=== PATIENT | female | born 1960 | race African-American/Black ===

== ENCOUNTER 2019-01-30 13:50 | Observation (INO) ==
[2019-01-30] MEDS ORDERED: ASPIRIN PO ONE (13:58)
[2019-01-30 14:13] LABS: BASO# 0.01 X1000 (0.0-0.2); BASO% 0.2 % (0.0-0.8); HEMATOCRIT 42.4 % (37.0-47.0); HEMOGLOBIN 14.1 g/dL (12.0-16.0); LYMPH# 1.33 X1000 (1.2-3.4); LYMPH% 22.4 % (20.5-51.1); MCH 28.1 PG (27-31); MCHC 33.3 g/dL (33-37); MCV 84.5 FL (81-99); MONO# 0.49 X1000 (0.11-0.59); MONO% 8.2 % (1.7-9.3); MPV 10.9 FL (7.4-10.4); NEUT# 4.12 X1000 (1.4-6.5); NEUT% 69.2 % (42.2-75.2); PLT 290 X1000 (130-400); RBC 5.02 XMIL (4.2-5.4); RDW 13.7 % (11.5-14.5); WBC 5.95 X1000 (4.8-10.8)
--- NOTE | 2019-01-30 14:31 | Diag Imaging Result Doc PS360 ---
EXAM: CHEST-1 VIEW HISTORY: chest pain TECHNIQUE: Chest single view COMPARISON: 12/16/2018 FINDINGS: The lungs are well expanded. The heart is not enlarged. The vessels are not distended. There are no infiltrates. No effusion identified. IMPRESSION: Negative exam. Electronically signed by Rich Auguste 01/30/2019 2:29 PM
[2019-01-30 14:49] LABS: AGAP 12; BUN 17 mg/dL (8-22); CALCIUM 9.9 mg/dL (8.8-10.2); CHLORIDE 102 mmol/L (98-107); COSMO 279; CREATININE 0.3 mg/dL (0.5-0.9); ESTIMATED GFR > 60; GLUCOSE 92 mg/dL (70-104); INR 0.9; POTASSIUM 4.5 mmol/L (3.5-5.1); PROTIME 12.6 Seconds (11.0-16.0); PTT 27.6 Seconds (22.3-41.8); SODIUM 139 mmol/L (136-145); TCO2 25 mmol/L (25-35); TOTAL PROTEIN 7.6 g/dL (6.3-8.3)
[2019-01-30 14:50] LABS: ALBUMIN 4.9 g/dL (3.5-5.0); ALKALINE PHOSPHATASE 141 U/L (32-104); GOT 28 U/L (10-30); GPT 10 U/L (10-36)
[2019-01-30] MEDS ORDERED: TORADOL IV ONE (15:03)
--- NOTE | 2019-01-30 15:53 | EKG Report ---
Test Performed on : 01/30/2019 2:05:56 PM Test Reason : chest pain Blood Pressure : / mmHG Vent. Rate : 101 BPM Atrial Rate : 101 BPM P-R Int : 166 ms QRS Dur : 070 ms QT Int : 348 ms P-R-T Axes : 073 059 046 degrees QTc Int : 451 ms Sinus tachycardia. Otherwise normal ECG When compared with ECG of 16-DEC-2018 16:43, (Unconfirmed) No significant change was found Unconfirmed Result
--- NOTE | 2019-01-30 19:33 | PROVIDER DOCUMENTATION ---
This chart was entered by Ileana Mcgee Scribe, acting as scribe for Steven Ibarra MD. HPI-Chest Pain - General Source: patient - History of Present Illness-CP Location: reports: substernal Chest Pain Radiation: reports: no radiation Quality of Pain: reports: other ("cant explain it") Severity in ED: mild Onset/Duration: this afternoon Timing: improving, intermittent Context/Activities at Onset: reports: light activity Modifying Factors: worse with: breathing, coughing Associated Symptoms: denies: abdominal pain, diaphoresis, dizziness, fever/chills, nausea, shortness of breath, swelling/lump in chest, vomiting Nitro Today/Relief: no nitro taken today Aspirin Treatment Today: 325 mg x 1, provided by ED Prior Chest Pain/Cardiac Workup: reports: other (saw pcp and "had some stuff done but not sure what") Similar Symptoms Previously?: Yes Recently Seen Here or By Another Healthcare Provider: Yes (saw pcp) <Steven Ibarra - Last Filed: 01/30/19 19:33> <Dale Campbell - Last Filed: 01/31/19 02:41> - General Chief Complaint: Chest Pain Stated Complaint: CHEST PAIN Time Seen by Provider: 01/30/19 13:56 Allergies/Adverse Reactions: Patient Allergies Allergy/AdvReac Type Severity Reaction Status Date / Time No Known Allergies Allergy Verified 12/16/18 16:39 Home Medications: Home Medication List Medication Instructions Recorded Confirmed Last Taken Type Albuterol Sulfate Inhaler 2 puff INH Q6H PRN PRN 07/27/18 07/27/18 Unknown History [Ventolin Hfa] Amitriptyline [Elavil] 50 mg PO HS 07/27/18 07/27/18 08/02/18 21:00 History Aspirin 81 mg PO DAILY 07/27/18 07/27/18 07/26/18 21:00 History Clonidine [Catapres] 0.2 mg PO BID 07/27/18 07/27/18 08/02/18 21:00 History Diclofenac Sodium 50 mg PO BID 07/27/18 07/27/18 08/02/18 21:00 History Ferrous Sulfate [Iron] 325 mg PO DAILY 07/27/18 07/27/18 08/02/18 09:00 History Furosemide 40 mg PO DAILY 07/27/18 07/27/18 08/02/18 09:00 History Hydralazine [Apresoline] 50 mg PO 4XDAY 07/27/18 07/27/18 08/02/18 21:00 History Meclizine HCl 2 tab PO QHS 07/27/18 07/27/18 08/02/18 09:00 History Metformin [Glucophage] 500 mg PO BID CC 07/27/18 07/27/18 Unknown History Metoprolol [Lopressor] 50 mg PO BID 07/27/18 07/27/18 08/03/18 04:30 History Nifedipine [Nifedipine ER] 60 mg PO DAILY 07/27/18 07/27/18 08/02/18 09:00 History Potassium Chloride 20 meq PO DAILY 07/27/18 07/27/18 08/02/18 09:00 History Tramadol [Ultram] 50 mg PO Q6H PRN PRN 07/27/18 07/27/18 08/02/18 09:00 History Aspirin [Ecotrin] 325 mg PO BID #60 tablet. 08/03/18 Unknown Rx Oxycodone HCl/Acetaminophen 1 each PO Q4-6H PRN PRN #40 tablet 08/03/18 Unknown Rx [Percocet 5-325 mg Tablet] - History of Present Illness-CP Nature of Presenting Problem: 58 yobf presents to the ed with c/o mid sternum chest pain onset after eating lunch. pt sts "Its hard t explain the pain, its just there" pt sts had similar pain in the past and f/u with pcp and all came out normal. pt on exam is in no distress and is nontoxic in appearance. pt has had a cough and sts deep breathing and cough increase pain. (Steven Ibarra) Review of Systems - Adult - REVIEW OF SYSTEMS - ADULT Constitutional: denies: chills, fever Eyes: reports: no symptoms reported Ears, Nose, Mouth & Throat: reports: no symptoms reported Cardiovascular: reports: see HPI, chest pain, palpitations (fast). denies: syncope Respiratory: reports: cough, wheezing. denies: shortness of breath Gastrointestinal: denies: abdominal pain, diarrhea, nausea, vomiting Genitourinary: reports: no symptoms reported Musculoskeletal: denies: back pain, neck pain Integumentary: reports: no symptoms reported Neurological: reports: no symptoms reported Psychiatric: reports: no symptoms reported Endocrine: reports: no symptoms reported Hematologic/Lymphatic: reports: no symptoms reported Allergic/Immunologic: reports: no symptoms reported All Other Systems: Reviewed and Negative <Steven Ibarra - Last Filed: 01/30/19 19:33> Past History - Adult - PAST MEDICAL HISTORY-ADULT Review of Records: reports: Nursing Assessment Review, Medications Reviewed Major Childhood Illnesses: reports: denies history Cardiovascular: reports: HTN Respiratory: reports: denies history Gastrointestinal: reports: denies history Obstetrical/Gynecological: reports: denies history Genitourinary: reports: denies history Musculoskeletal: reports: denies history Hand Dominance: Right Handed Neurological: reports: denies history Psychiatric: reports: anxiety Endocrine/Immune: reports: Diabetes Diabetes Type: Type 2 Diabetes controlled by:: PO Meds Other Conditions: reports: other cancer - PRIOR SURGERIES/PROCEDURES Surgical/Procedure History: reports: hysterectomy, - IMMUNIZATION STATUS Childhood Immunizations: See Nurse Assessment Flu Vaccine: See Nurse Assessment - FAMILY HISTORY Family History: reviewed, not pertinent - SOCIAL HISTORY Smoking: denies Substance Use: denies Living Situation: family <Steven Ibarra - Last Filed: 01/30/19 19:33> Physical Exam-General - PHYSICAL EXAM-ADULT Initial Vital Signs Reviewed: Yes - CONSTITUTIONAL General Appearance: appears well, alert, no apparent distress, obese - EYES Eyes: PERRL/EOMI, pink conjunctivae - HEAD, EARS, NOSE, MOUTH & THROAT HENMT: moist mucous membranes, normal ENT inspection - NECK Neck: non-tender, full range of motion, supple, normal inspection - RESPIRATORY Respiratory: chest non-tender, lungs clear, normal breath sounds, no respiratory distress, no accessory muscle use - CARDIOVASCULAR Cardiovascular: normal peripheral pulses, tachycardia (112) - CHEST (BREASTS) Chest/Breast: tenderness (mid sternum) - GASTROINTESTINAL (ABDOMEN) Abdominal Exam: normal bowel sounds, non tender, soft, no organomegaly, no pulsatile mass - LYMPHATIC Lymphatic: no adenopathy - MUSCULOSKELETAL Back Exam: normal inspection, no CVA tenderness, no vertebral tenderness Extremity: normal range of motion, non-tender, normal inspection, no pedal edema , no calf tenderness, normal capillary refill, pelvis stable - SKIN Integumentary: normal color, normal turgor, warm/dry - NEUROLOGIC Neurologic: grossly normal, no motor/sensory deficits - PSYCHIATRIC Psych/Mental Status: normal mood/affect, normal thought content, normal thought process, oriented x 3 <Steven Ibarra - Last Filed: 01/30/19 19:33> - HEART Score HEART Score: History: Moderately Suspicious HEART Score: ECG: Normal HEART Score: Age: 45-65 Years HEART Score: Risk Factors for Atherosclerotic Disease: > or = 3 Risk Factors or History of Atherosclerotic Disease HEART Score: Troponin: < or = Normal Limit Total HEART Score:: 4 <AdrianDale Channing - Last Filed: 01/31/19 02:41> Progress - PLAN OF CARE/RESULTS Result Diagrams: 01/30/19 14:05 01/30/19 14:05 - REASSESSMENT Reassessment #1 Time Reassessed: 15:52 Status: improving - EKG 1 Time of EKG reading by physician:: 14:05 EKG Read and Signed by:: Steven Ibarra EKG Interpretation (*Must complete 3 of following elements*): Normal Rate: 101 Rhythm: sinus tachycardia [place]: normal QRS: normal [place] Interval: normal ST Wave: normal - XRAY 1 XRAY: Bilateral XRAY Study: Chest Impression: See EMR Report (EXAM: CHEST-1 VIEW HISTORY: chest pain TECHNIQUE: Chest single view COMPARISON: 12/16/2018 FINDINGS: The lungs are well expanded. The heart is not enlarged. The vessels are not distended. There are no infiltrates. No effusion identified. IMPRESSION: Negative exam. Electronically signed by Rich Auguste 01/30/2019 2:29 PM 01/30/19 1429 Interpreting Physician: Rich Auguste MD Dictated Date/Time: 01/30/19 1429 cc: Steven Ibarra MD; Jakub Small MD) - CHANGE OF SHIFT REPORT (ED Provider) 1 Report Given and Care Transferred to:: Dr Campbell Time of Transfer: 19:00 Items Pending: Labs <Steven Ibarra - Last Filed: 01/30/19 19:33> - PLAN OF CARE/RESULTS Result Diagrams: 01/30/19 14:05 01/30/19 14:05 - CONSULTS/PCP/HOSPITALIST Notification #1 *Consult/PCP/Hospitalist*: Dr. Mendoza, hospitalist Time Discussed: 21:35 Consult Disposition: Admit <Dale Campbell - Last Filed: 01/31/19 02:41> Departure <Steven Ibarra - Last Filed: 01/30/19 19:33> - Departure Date of Disposition Decision: 01/30/19 Time of Disposition Decision: 22:20 Certified Medical Emergency: Emergent - Critical Care Note This patient required my direct & personal management of CC.: No <Dale Campbell - Last Filed: 01/31/19 02:41> - Departure DIAGNOSIS: Chest pain Qualifiers: Chest pain type: unspecified Qualified Code(s): R07.9 - Chest pain, unspecified Disposition: ADMITTED INPATIENT 09 Condition: Stable Attestation - Physician/ MICHAEL Attestation Patient care was provided by Advanced Practice Provider:: No The physician spent face to face time with patient:: Yes Advanced Practice Provider documentation review:: Supervising physician onsite and consulted in the evaluation and care of this patient. The physician did have a face to face encounter with the patient. <Dale Campbell - Last Filed: 01/31/19 02:41> This chart was documented by the indicated scribe, (Ileana Mcgee Scribe) and accurately reflects the services I performed and decisions made by me, Steven Ibarra MD, as attested by the provider's signature.
[2019-01-30 19:47] LABS: CK INDEX 1.4 (0.0-2.5); CK-MB 3.99 ng/mL (0.0-5.0)
[2019-01-30] MEDS ORDERED: LOVENOX SUBQ ONE (21:37)
--- NOTE | 2019-01-31 01:46 | EKG Report ---
Test Performed on : 01/31/2019 01:33:00 AM Test Reason : pain Blood Pressure : / mmHG Vent. Rate : 080 BPM Atrial Rate : 080 BPM P-R Int : 164 ms QRS Dur : 076 ms QT Int : 404 ms P-R-T Axes : 074 059 073 degrees QTc Int : 465 ms Normal sinus rhythm. Nonspecific T wave abnormality Prolonged QT Abnormal ECG When compared with ECG of 30-JAN-2019 14:05, (Unconfirmed) No significant change was found Confirmed by Deny Earl MD ([id number]) on 02/02/2019 7:31:28 AM
--- NOTE | 2019-01-31 06:01 | EKG Report ---
Test Performed on : 01/31/2019 05:56:41 AM Test Reason : pain Blood Pressure : / mmHG Vent. Rate : 075 BPM Atrial Rate : 075 BPM P-R Int : 168 ms QRS Dur : 076 ms QT Int : 408 ms P-R-T Axes : 069 061 077 degrees QTc Int : 455 ms Normal sinus rhythm. Nonspecific T wave abnormality Abnormal ECG When compared with ECG of 31-JAN-2019 01:33, (Unconfirmed) No significant change was found Confirmed by Deny Earl MD ([id number]) on 02/02/2019 7:30:44 AM
[2019-01-31] MEDS ORDERED: LOVENOX ONE (08:38)
--- NOTE | 2019-01-31 11:44 | HISTORY AND PHYSICAL ---
PRIMARY CARE PHYSICIAN: Dr. Jakub Small. CHIEF COMPLAINT: Chest pain. HISTORY OF PRESENTING ILLNESS: This is a 58-year-old female who presents to [facility] ER with complaints of substernal chest pain that began after lunch. Denied any radiating of pain. Also had some shortness of breath. States the pain was intermittent and is currently resolved. States that she had a stress test several years ago that was read as normal. Her HEART score was 4. On workup in the emergency room, she has had 4 sets of cardiac enzymes that were negative. Her EKG on arrival showed sinus tachycardia at 101. Chest x-ray was a negative exam, and she was admitted for further evaluation and treatment. PAST MEDICAL HISTORY: Hypertension, anxiety, diabetes type 2, and endometrial cancer. PAST SURGICAL HISTORY: Hysterectomy, section, and a left foot surgery. FAMILY HISTORY: She states her grandmother had a stroke. SOCIAL HISTORY: She currently lives with family. Denies any tobacco, alcohol, or illicit drug use. ALLERGIES: She has no known drug allergies. HOME MEDICATIONS: A current list will need to be obtained, reconciled, reviewed, and restarted as appropriate. Will place an order for nursing to update and confirm her home medications. IMAGING AND LABORATORY DATA: Laboratory data showed a white blood cell count of 5.95, hemoglobin 14.1, hematocrit 42.4, platelets 290,000. PT and INR of 12.6 and 0.90. D-dimer of 0.46. Sodium 139, potassium 4.5, chloride 102, CO2 of 25, BUN of 17, creatinine 0.3, glucose 92. Cardiac enzymes x4 sets have been negative. ProBNP was 24. Chest x-ray was a negative exam. EKG showed sinus tachycardia at 101. REVIEW OF SYSTEMS: She denied any fever, chills, blurred vision, dizziness. She was positive for chest pain and shortness of breath. Denied any abdominal pain, constipation, diarrhea, or burning or hurting with urination. PHYSICAL EXAMINATION: VITAL SIGNS: On arrival, she had a pulse of 112, respirations 18, blood pressure 180/99, saturating 96% on room air. This a.m., her temperature was 98.4 degrees, pulse 80, respirations 20, blood pressure 176/92, saturating 98% on room air. GENERAL: This is a 58-year-old female who is lying in the bed and answers questions appropriately. HEENT: Normocephalic, atraumatic. Normal ENT inspection. Oropharynx and nares are clear. Eyes: Pupils are equal, round, and reactive to light and accommodation. Extraocular movements are intact. Oropharynx and nares are clear. NECK: Supple. Normal inspection. Normal range of motion. LUNGS: Clear to auscultation bilaterally with equal lung expansion and chest wall movement. HEART: Regular rate and rhythm. No murmurs, rubs, or gallops. ABDOMEN: Soft, nontender, nondistended. Bowel sounds are present x4 quadrants. MUSCULOSKELETAL: She has 5/5 strength x4 extremities. NEUROLOGICAL: Cranial nerves II through XII appear grossly intact. ASSESSMENT: 1. Chest pain. 2. Hypertension. 3. Diabetes type 2. PLAN: She was admitted to the medical unit at [place], placed on telemetry. Will place her on a diabetic diet. Will need to update and confirm her home medications. Placed her on pattern blood sugars. I believe, after she is seen by attending and now that she has been ruled out, that she can probably be discharged home later on this afternoon, to follow up with her primary care physician to schedule an outpatient stress test, but further orders after seen by attending. Dictated by TOMAS Ro for Freddy Escobar MD Addendum: Patient seen and examined by myself. Agree with TOMAS note. It reflects my assessment and plan. Patient is being admitted to hospital for chest pain and patient would like to have cardiac workup as inpatient so will order Lexiscan and echocardiogram and will go from there. So far three sets of troponins are negative. Will monitor patient closely. cc: TOMAS Ro MD Rodney W. Harney, MD CUBA MEMORIAL HOSPITALIsauro
[2019-01-31] MEDS ORDERED: ULTRAM PO PRN (14:14)
[2019-01-31] MEDS ORDERED: VENTOLIN HFA INH PRN (14:14)
[2019-01-31] MEDS: ASPIRIN EC PO SCH (15:06)
[2019-01-31] MEDS: GLUCOPHAGE PO SCH (16:53)
[2019-01-31] MEDS: ELAVIL PO SCH (20:04)
[2019-01-31] MEDS: CATAPRES PO SCH (20:05)
[2019-01-31] MEDS: LOPRESSOR PO SCH (20:05)
[2019-02-01] MEDS: GLUCOPHAGE PO SCH ×2 (11:47→16:54)
[2019-02-01] MEDS ORDERED: LEXISCAN ONE (11:59)
[2019-02-01] MEDS: LOPRESSOR PO SCH ×2 (12:51→20:24)
[2019-02-01] MEDS: ADALAT CC PO SCH (12:51)
[2019-02-01] MEDS: ASPIRIN EC PO SCH (12:52)
[2019-02-01] MEDS: KLOR-CON PO SCH (12:52)
[2019-02-01] MEDS: CATAPRES PO SCH ×2 (12:52→20:24)
[2019-02-01] MEDS: LASIX PO SCH (12:52)
--- NOTE | 2019-02-01 13:32 | ECHO REPORT ---
ORDER DATE: 01/31/2019 INDICATION: Chest pain. FINDINGS: 1. The right atrium is mildly enlarged at 4.2 cm. 2. Mild tricuspid regurgitation. 3. Probable normal RV systolic function based on limited views of the right ventricle. 4. No significant pulmonic insufficiency. 5. Normal left atrial size with a dimension of 3.3 cm. 6. No mitral prolapse. Trace mitral regurgitation. No evidence of mitral stenosis. 7. Normal LV size. End-diastolic dimension of 4.2 cm. Normal wall thicknesses with a posterior and interventricular septal wall thickness of 1.0 cm each. Normal LV systolic function. Estimated EF is 65% with normal wall motion. 8. Aortic valve opens well. No evidence of stenosis or insufficiency. 9. Aorta appears normal on visualized segments. 10. No pericardial effusion seen. cc: MD Freddy Lu MD
--- NOTE | 2019-02-01 17:00 | Diag Imaging Result Document ---
PROCEDURE NAME: MYOCARDIAL PERF SCAN, STR/REST - 01/31/2019 STUDY: Lexiscan sestamibi. SUMMARY: The patient was administered 15.8 mCi of technetium-99m sestamibi, after which resting cardiac images were obtained. The patient was subsequently administered Lexiscan 0.4 mg intravenously, after which the heart rate went from 60 beats per minute to 105 beats per minute. The blood pressure went from 155/93 to 176/91. With Lexiscan, the patient denied chest discomfort. Following the administration of Lexiscan, the patient was administered 44.0 mCi of technetium-99m sestamibi, after which gated stress cardiac images were obtained. Baseline ECG demonstrated sinus rhythm. Nonspecific T-wave abnormality demonstrated. With Lexiscan, there were no diagnostic ST-segment changes. SPECT images were reconstructed in the short, horizontal long and vertical long axis. Review of these images demonstrated no scintigraphic evidence of inducible myocardial ischemia or prior infarct. Gated images demonstrated calculated left ventricular ejection fraction of 80% with symmetrical wall motion/thickening. CONCLUSIONS: 1. Adequate response to Lexiscan. 2. Clinically negative for chest pain. 3. Electrocardiographically there were no diagnostic ST-segment changes on ECG following administration of Lexiscan. 4. Lexiscan sestamibi images demonstrate no scintigraphic evidence of inducible myocardial ischemia. Normal left ventricular systolic function demonstrated. cc: MD Freddy Godwin MD
[2019-02-01] MEDS: ELAVIL PO SCH (20:24)
[2019-02-02 07:28] VITALS: BP 107/65
[2019-02-02] MEDS: GLUCOPHAGE PO SCH (09:17)
[2019-02-02] MEDS: ASPIRIN EC PO SCH (09:18)
[2019-02-02] MEDS: LASIX PO SCH (09:18)
[2019-02-02] MEDS: CATAPRES PO SCH (09:18)
[2019-02-02] MEDS: ADALAT CC PO SCH (09:18)
[2019-02-02] MEDS: KLOR-CON PO SCH (09:18)
[2019-02-02] MEDS: LOPRESSOR PO SCH (09:18)
--- NOTE | 2019-02-02 13:00 | PROGRESS NOTE ---
DATE: 02/01/2019 SUBJECTIVE: The patient reported that she still has some mild chest discomfort and that is why yesterday she decided to stay and have the further workup as an inpatient for acute coronary syndrome. She is going to have a Lexiscan stress test done. OBJECTIVE: Vital Signs: Temperature degrees 98.0, heart rate 65, respiratory rate 18, blood pressure 137/65, O2 saturation 95% on room air. General: This is a 58-year-old female lying in bed, in no acute distress. Cardiovascular: S1, S2 heard. No murmurs, gallops, or rubs. Regular rate and rhythm. Respiratory: Clear bilaterally to auscultation. No work of breathing or using accessory muscles. Abdomen: Soft, nontender to palpation. Bowel sounds present. No organomegaly. Extremities: No clubbing, cyanosis, or edema. Peripheral pulses present in both legs. Neurologic: The patient is alert and oriented x3. Moves all 4 extremities. ASSESSMENT AND PLAN: 1. Chest pain. The patient was admitted to the hospital because of this condition. Initially, the workup at admission yesterday was repeat troponins 3 times, which were normal. The patient was explained in depth that she will need to have a Lexiscan as an outpatient, but because this patient persisted with chest pain that is the reason why she is staying in the hospital to pursue this examination, with possible cardiac consultation if that exam is positive, so at this time, we will continue to monitor this patient closely. We will see if at the end of the day that exam is available and we will go from there. 2. Hypertension. Blood pressure is under control. We will continue with same management. 3. Diabetes mellitus, type 2. We will continue with Accu-Cheks before meals and also at bedtime. 4. Disposition. We will continue to monitor this patient closely. We will repeat EKG if needed if she continues with chest pain. The patient has risk factors for coronary artery disease. We will see what the Lexiscan stress test shows today. Hopefully it is going to be ready for today. cc: Freddy Escobar MD
--- NOTE | 2019-02-04 13:42 | DISCHARGE SUMMARY ---
ADMISSION DATE: 01/30/2019 DISCHARGE DATE: 02/02/2019 PRIMARY CARE PHYSICIAN: Jakub Small MD ADMISSION DIAGNOSES: 1. Chest pain. 2. Hypertension. 3. Diabetes, type 2. DISCHARGE DIAGNOSES: 1. Chest pain. Ruled out by myocardial perfusion scan. 2. Hypertension. 3. Diabetes, type 2. SUMMARY OF FINDINGS: This is a 58-year-old female, who presented to the ER with substernal chest pain that began after lunch. Denied any radiating of pain. Did have some shortness of breath. States the pain was intermittent and currently had resolved on arrival. States she had a stress test several years ago that was read as normal. Her HEART score was 4. She had an echocardiogram on 01/31/2019 that showed an estimated ejection fraction of 65% with normal LV systolic function, she had a myocardial perfusion scan on 01/31/2019 that was read as normal, and so it was felt that she could safely be discharged home. DISCHARGE MEDICATIONS: Included Ventolin inhaler 2 puff inhalation q.4 h. P.r.n. Amitriptyline 50 mg p.o. at bedtime. Aspirin 81 mg p.o. daily. Ecotrin 325 mg p.o. b.i.d. Clonidine 0.2 mg p.o. b.i.d. Diclofenac 50 mg p.o. b.i.d. Ferrous sulfate 325 mg p.o. daily. Furosemide 40 mg p.o. daily. Hydralazine 50 mg p.o. 4 times daily. Meclizine 25 mg 2 tablets p.o. at bedtime. Metformin 500 mg p.o. b.i.d. Metoprolol 50 mg p.o. b.i.d. Nifedipine 60 mg p.o. daily. Potassium 20 mEq p.o. daily. Tramadol 50 mg p.o. q.6 h. p.r.n. FOLLOW-UP: She needs to follow up with her primary care physician in 1 to 2 weeks and call their office for an appointment. COORDINATION TIME: A 33-minute discharge. Dictated by TOMAS Ro for Freddy Escobar MD Addendum: Patient seen and examined by myself. Agree with TOMAS note. It reflects my assessment and plan. Patient is being discharged in stable condition. Will be seen by PCP in a week. cc: TOMAS Ro MD Rodney W. Harney, MD MTDD
== END 2019-02-02 13:30 | disposition home or self-care (01) ==
LOC: P.EDIPHOLD 13:50 → P.ED 13:50 → P.MEDSURG 01-31 08:35
PROVIDERS: ADMIT Internal Medicine; ATTEND Internal Medicine
CPT/HCPCS: 71010; 71045; 78452; 80053; 82550; 82553; 82948; 83880; 84484; 85025; 85379; 85610; 85730; 93005; 93017; 93306; 96372; 96374; 99285; A9270; A9500; J1650; J1885; J2785; XXXXX